=== PATIENT | male | born 1955 | race Caucasian/White ===

== ENCOUNTER 2022-08-11 16:02 | Emergency (ER) | payer MEDICARE, BC, SELFPAY ==
[2022-08-11 16:19] VITALS: BP 115/75; PULSE 77; RESP 20; TEMP 36.6; O2SAT 97; BMI 30.3
--- NOTE | 2022-08-11 16:49 | ED.WOUNDLAC ---
HPI - Wound/Laceration General Time Seen by Provider: 16:49 Date Seen: 08/11/22 Chief Complaint: Laceration/Wound Stated Complaint: Finger Lac Time Seen by Provider: 08/11/22 16:04 Source: patient History of Present Illness HPI narrative: 66-year-old male presents emergency room with a laceration at the base of the right thumb caused by this sheet metal on a dryer event. He was helping his daughter with the dryer vent when he got a cut to his right hand. He is right handed. No other injury. Last tetanus vaccine was last year. He has allergies and depression. No other chronic medical problems. Only medications are citalopram and montelukast. He is not on anticoagulation. Related Data Home Medications Medication Instructions Recorded Confirmed citalopram 20 mg tablet (Celexa) 20 mg PO DAILY 08/11/22 08/11/22 montelukast 10 mg tablet 10 mg PO DAILY 08/11/22 08/11/22 (Singulair) Allergies Allergy/AdvReac Type Severity Reaction Status Date / Time No Known Drug Allergies Allergy Verified 08/11/22 16:22 Review of Systems Narrative: He reports feeling well no other illness or injury. PFSH PFS Social History Smoking Status: Never smoker Do you use any of these nicotine containing products: None How often do you have a drink containing alcohol: 4 or more times a week How many standard drinks containing alcohol do you have on a typical day: 1 or 2 How often do you have six or more drinks on one occasion: Never AUDIT-C Alcohol total score: 4 Non-prescribed substance use: denies use Exam Narrative: Exam Narrative: Right hand is examined. At the bases a thumb over the flexor crease at the MCP joint he has a 1 cm laceration. The laceration is adjacent to and parallel to the flexor crease. It is relatively superficial. No tendons or ligaments are identified in the wound. Distally he has intact motion strength and sensation in the thumb. Const: Vital Signs, click to edit/add: Vital Signs - 24 hr 08/11/22 16:19 Temperature 97.8 F Pulse Rate [Left P ulse Oximeter] 77 Respiratory Rate 20 Blood Pressure [Le ft Upper Arm] 115/75 Pulse Oximetry 97 Oxygen Delivery Me thod Room Air Documenting provider has reviewed patient's vital signs: yes Course Course Hospital Course: After discussion of options patient elects to proceed to suture laceration repair. Wound is anesthetized with 1% lidocaine with epinephrine. Wound is cleaned with Hibiclens scrub. Three 4-0 nylon sutures are placed to approximate the wound edges. He tolerates this well. Wound is bandaged afterwards. Wound care instructions are given. Vital Signs Vital signs: Initial Vital Signs Temperature 97.8 F 08/11/22 16:19 Temperature Source Temporal Artery Scan 08/11/22 16:19 Pulse Rate 77 08/11/22 16:19 Respiratory Rate 20 08/11/22 16:19 Blood Pressure 115/75 08/11/22 16:19 Blood Pressure Mean 88 08/11/22 16:19 Blood Pressure Position Sitting 08/11/22 16:19 Pulse Oximetry 97 08/11/22 16:19 Oxygen Delivery Method 08/11/22 16:19 Vital Signs Temperature 97.8 F 08/11/22 16:19 Pulse Rate 77 08/11/22 16:19 Respiratory Rate 20 08/11/22 16:19 Blood Pressure 115/75 08/11/22 16:19 Pulse Oximetry 97 08/11/22 16:19 Oxygen Delivery Method 08/11/22 16:19 Temperature 97.8 F 08/11/22 16:19 Pulse Rate 77 08/11/22 16:19 Respiratory Rate 20 08/11/22 16:19 Blood Pressure 115/75 08/11/22 16:19 Pulse Oximetry 97 08/11/22 16:19 Oxygen Delivery Method 08/11/22 16:19 Discharge Plan Discharge Clinical Impression: Laceration Patient Disposition: Home, Self-Care Condition: Improved Additional Instructions: Keep current bandage on for 1 day. Tomorrow you may remove the bandage and wash your laceration with clean water and soap. Gently pat dry afterwards and keep covered with a Band-Aid and antibiotic ointment such as bacitracin. Watch for signs of infection, increasing redness, drainage, pain, swelling. See her doctor if signs of infection. Sutures out in 10 days. Prescriptions: No Action montelukast [Singulair] 10 mg tablet 10 mg PO DAILY citalopram [Celexa] 20 mg tablet 20 mg PO DAILY Follow Up/Referrals: Provider,Not a Local [Primary Care Provider] - Stand Alone Forms: [facility] Info Instructions
[2022-08-11 17:06] VITALS: BP 115/75; PULSE 77; RESP 20; TEMP 36.6
== END 2022-08-11 17:07 | disposition home or self-care (01) ==
PROVIDERS: Emergency Provider Family Medicine
DX: S61.011A Laceration without foreign body of right thumb without damage to nail, initial encounter (principal); W26.8XXA Contact with other sharp object(s), not elsewhere classified, initial encounter
CPT/HCPCS: 12001; 99282; 99283